=== PATIENT | female | born 1980 ===

== ENCOUNTER 2019-01-14 20:57 | Emergency (ER) | payer SELFPAY ==
[2019-01-14 21:42] LABS: Absolute Lymphocytes (CBC) 2.8 K/uL (0.7-4.9); Basophils % 0.6 % (0-1.3); Hematocrit 39.3 % (36.0-45.0); Lymphocytes % 30.4 % (15.3-44.8); MPV 8.4 fL (7.6-11.3); RBC Red Blood Cell Count 4.44 M/uL (3.86-4.86)
[2019-01-14 22:08] LABS: Urine Blood NEGATIVE (NEG); Urine Glucose NEGATIVE (NEG); Urine Protein NEGATIVE (NEG); Urine pH 5.5 (5.0-7.0)
[2019-01-14] MEDS ORDERED: NA CHLORIDE 0.9% 1,000 ML ONE (23:27)
[2019-01-15] MEDS ORDERED: PANTOPRAZOLE 40 MG INJ ONE (01:20)
[2019-01-15 01:35] LABS: ALT/SGPT 20 U/L (12-78); AST/SGOT 13 U/L (15-37); Albumin 3.3 g/dL (3.4-5.0); Alkaline Phosphatase 60 U/L (45-117); BUN Blood Urea Nitrogen 12 mg/dL (7-18); Bicarbonate 30 mmol/L (21-32); Bilirubin Direct 0.1 mg/dL (0-0.2); Bilirubin Total 0.4 mg/dL (0.2-1.0); Glucose Level 98 mg/dL (74-106); Lipase 84 U/L (73-393); Potassium 4.1 mmol/L (3.5-5.1); Protein, Total 6.7 g/dL (6.4-8.2); Sodium Level 141 mmol/L (136-145)
--- NOTE | 2019-01-15 01:43 | ER ---
Nurse's Notes [facility] Name: Lani Johnson Age: 38 yrs Sex: Female : 1980 Arrival Date: 01/14/2019 Time: 20:59 Bed 18 Private MD: Diagnosis: Upper abdominal pain, unspecified Presentation: 01/14 21:01 Presenting complaint: Significant other states: abd pain, nausea, dizziness, started iw yesterday morning. Transition of care: patient was not received from another setting of care. Onset of symptoms was January 13, 2019. Risk Assessment: Do you want to hurt yourself or someone else? Patient reports no desire to harm self or others. Initial Sepsis Screen: Does the patient meet any 2 criteria? No. Patient's initial sepsis screen is negative. Does the patient have a suspected source of infection? No. Patient's initial sepsis screen is negative. Care prior to arrival: None. 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 - Social history:: Smoking status: Patient/guardian denies using tobacco. - Ebola Screening: : Patient negative for fever greater than or equal to 101.5 degrees Fahrenheit, and additional compatible Ebola Virus Disease symptoms Patient denies exposure to infectious person Patient denies travel to an Ebola-affected area in the 21 days before illness onset No symptoms or risks identified at this time. Screenin:30 Abuse screen: Denies threats or abuse. Denies injuries from another. Nutritional wh screening: No deficits noted. Tuberculosis screening: No symptoms or risk factors identified. Fall Risk None identified. Assessment: 21:20 General: Appears in no apparent distress. Behavior is calm, cooperative, appropriate wh for age. Pain: Complains of pain in abdomen Pain does not radiate. Pain currently is 5 out of 10 on a pain scale. Pain began 1 day ago. Neuro: Level of Consciousness is awake, alert, obeys commands, Oriented to person, place, time, situation, Appropriate for age. Cardiovascular: Heart tones S1 S2. Respiratory: Airway is patent Respiratory effort is even, unlabored, Respiratory pattern is regular, symmetrical, Breath sounds are clear bilaterally. GI: Abdomen is flat, non-distended, Bowel sounds present X 4 quads. Abd is soft and non tender X 4 quads. : No signs and/or symptoms were reported regarding the genitourinary system. EENT: No signs and/or symptoms were reported regarding the EENT system. Derm: Skin is intact, is healthy with good turgor, Skin is pink, warm \T\ dry. normal. Musculoskeletal: Circulation, motion, and sensation intact. 21:52 Reassessment: Patient appears in no apparent distress at this time. No changes from previously documented assessment. Patient and/or family updated on plan of care and expected duration. Pain level reassessed. Patient is alert, oriented x 3, equal unlabored respirations, skin warm/dry/pink. 23:28 Reassessment: Patient appears in no apparent distress at this time. No changes from previously documented assessment. Patient and/or family updated on plan of care and expected duration. Pain level reassessed. Patient is alert, oriented x 3, equal unlabored respirations, skin warm/dry/pink. 01/15 00:39 Reassessment: Patient appears in no apparent distress at this time. No changes from previously documented assessment. Patient and/or family updated on plan of care and expected duration. Pain level reassessed. Patient is alert, oriented x 3, equal unlabored respirations, skin warm/dry/pink. Patient states feeling better. Patient states symptoms have improved. 01:54 Reassessment: Patient appears in no apparent distress at this time. No changes from previously documented assessment. Patient and/or family updated on plan of care and expected duration. Pain level reassessed. Patient is alert, oriented x 3, equal unlabored respirations, skin warm/dry/pink. Patient states feeling better. Patient states symptoms have improved. Vital Signs: 01/14 21:03 BP 120 / 70; Pulse 72; Resp 16; Temp 97.8; Pulse Ox 99% on R/A; Weight 68 kg; Height 5 iw ft. 4 in. (165 cm); Pain 8/10; 21:45 BP 116 / 76; Pulse 66; Resp 16; Pulse Ox 99% on R/A; 23:15 BP 112 / 62; Pulse 60; Resp 18; Pulse Ox 99% on R/A; 01/15 00:30 BP 104 / 88; Pulse 62; Resp 16; Pulse Ox 100% on R/A; 01:45 BP 103 / 68; Pulse 68; Resp 18; Pulse Ox 100% on R/A; 01/14 21:03 Body Mass Index 24.98 (68.00 kg, 165 cm) ED Course: 01/14 20:59 Patient arrived in ED. ag3 21:02 Triage completed. 21:03 Arm band placed on. 21:14 Gail Ledezma is Primary Nurse. 21:30 Patient has correct armband on for positive identification. Placed in gown. Bed in low wh position. Call light in reach. Side rails up X 1. Pulse ox on. NIBP on. 21:30 Inserted saline lock: 20 gauge in right antecubital area, using aseptic technique. Blood collected. 21:32 Sunitha Couch FNP-C is PHCP. snw 21:32 Lux Teresa MD is Attending Physician. [facility] 01/15 01:54 No provider procedures requiring assistance completed. IV discontinued, intact, bleeding controlled, No redness/swelling at site. Administered Medications: 01/14 23:29 Drug: NS 0.9% 1000 ml Route: IV; Rate: 1 bolus; Site: right antecubital; 01/15 00:41 Follow up: Response: No adverse reaction; IV Status: Completed infusion 01:21 Drug: ProTONIX 40 mg Route: IVP; Site: right antecubital; 01:36 Follow up: Response: No adverse reaction Outcome: 01:42 Discharge ordered by . snw 01:55 Discharged to home ambulatory, with friend. 01:55 Condition: stable 01:55 Discharge instructions given to patient, friend, Instructed on discharge instructions, follow up and referral plans. medication usage, POC Abd pain and GERD Demonstrated understanding of instructions, follow-up care, medications, POC Prescriptions given X 2. 01:56 Patient left the ED. Signatures: Sunitha Couch FNP-C DUCT LAYER SUPERVISOR-Csnw Karen Quick RN RN [place], Olya nOeil ag3
--- NOTE | 2019-01-15 01:44 | EDPHYS ---
Physician Documentation [facility] Name: Lani Johnson Age: 38 yrs Sex: Female : 1980 Arrival Date: 01/14/2019 Time: 20:59 Bed 18 Private MD: GARCIA Physician Lux Teresa HPI: 01/14 23:16 This 38 yrs old Female presents to ER via Ambulatory with complaints of Abdominal Pain. snw 23:16 The patient presents with abdominal pain in the epigastric area. Onset: The snw symptoms/episode began/occurred 3 month(s) ago, and became persistent. The symptoms do not radiate. The symptoms are described as crampy, waxing/waning. Modifying factors: The symptoms are alleviated by nothing, the symptoms are aggravated by food. The patient has experienced similar episodes in the past. The patient has not recently seen a physician. 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 - Social history:: Smoking status: Patient/guardian denies using tobacco. - Ebola Screening: : Patient negative for fever greater than or equal to 101.5 degrees Fahrenheit, and additional compatible Ebola Virus Disease symptoms Patient denies exposure to infectious person Patient denies travel to an Ebola-affected area in the 21 days before illness onset No symptoms or risks identified at this time. ROS: 23:15 Constitutional: Negative for fever, chills, and weight loss, Eyes: Negative for injury, snw pain, redness, and discharge, ENT: Negative for injury, pain, and discharge, Neck: Negative for injury, pain, and swelling, Cardiovascular: Negative for chest pain, palpitations, and edema, Respiratory: Negative for shortness of breath, cough, wheezing, and pleuritic chest pain, Back: Negative for injury and pain, : Negative for injury, bleeding, discharge, and swelling, MS/Extremity: Negative for injury and deformity, Skin: Negative for injury, rash, and discoloration, Neuro: Negative for headache, weakness, numbness, tingling, and seizure, Psych: Negative for depression, anxiety, suicide ideation, homicidal ideation, and hallucinations. 23:15 Abdomen/GI: Positive for abdominal pain, nausea. Exam: 23:15 Constitutional: This is a well developed, well nourished patient who is awake, alert, snw and in no acute distress. Head/Face: Normocephalic, atraumatic. Eyes: Pupils equal round and reactive to light, extra-ocular motions intact. Lids and lashes normal. Conjunctiva and sclera are non-icteric and not injected. Cornea within normal limits. Periorbital areas with no swelling, redness, or edema. ENT: Nares patent. No nasal discharge, no septal abnormalities noted. Tympanic membranes are normal and external auditory canals are clear. Oropharynx with no redness, swelling, or masses, exudates, or evidence of obstruction, uvula midline. Mucous membranes moist. Neck: Trachea midline, no thyromegaly or masses palpated, and no cervical lymphadenopathy. Supple, full range of motion without nuchal rigidity, or vertebral point tenderness. No Meningismus. Chest/axilla: Normal chest wall appearance and motion. Nontender with no deformity. No lesions are appreciated. Cardiovascular: Regular rate and rhythm with a normal S1 and S2. No gallops, murmurs, or rubs. Normal PMI, no JVD. No pulse deficits. Respiratory: Lungs have equal breath sounds bilaterally, clear to auscultation and percussion. No rales, rhonchi or wheezes noted. No increased work of breathing, no retractions or nasal flaring. Back: No spinal tenderness. No costovertebral tenderness. Full range of motion. Skin: Warm, dry with normal turgor. Normal color with no rashes, no lesions, and no evidence of cellulitis. MS/ Extremity: Pulses equal, no cyanosis. Neurovascular intact. Full, normal range of motion. Neuro: Awake and alert, GCS 15, oriented to person, place, time, and situation. Cranial nerves II-XII grossly intact. Motor strength 5/5 in all extremities. Sensory grossly intact. Cerebellar exam normal. Normal gait. 23:15 Abdomen/GI: Inspection: abdomen appears normal, Bowel sounds: normal, in all quadrants, Palpation: moderate abdominal tenderness, in the left upper quadrant. Vital Signs: 21:03 BP 120 / 70; Pulse 72; Resp 16; Temp 97.8; Pulse Ox 99% on R/A; Weight 68 kg; Height 5 iw ft. 4 in. (165 cm); Pain 8/10; 21:45 BP 116 / 76; Pulse 66; Resp 16; Pulse Ox 99% on R/A; wh 23:15 BP 112 / 62; Pulse 60; Resp 18; Pulse Ox 99% on R/A; wh 01/15 00:30 BP 104 / 88; Pulse 62; Resp 16; Pulse Ox 100% on R/A; wh 01:45 BP 103 / 68; Pulse 68; Resp 18; Pulse Ox 100% on R/A; wh 01/14 21:03 Body Mass Index 24.98 (68.00 kg, 165 cm) iw MDM: 01/14 21:57 Patient medically screened. snw 01/15 01:40 Data reviewed: vital signs, nurses notes. Data interpreted: Pulse oximetry: on room air snw is 100 %. Interpretation: normal. Counseling: I had a detailed discussion with the patient and/or guardian regarding: the historical points, exam findings, and any diagnostic results supporting the discharge/admit diagnosis, lab results, radiology results, the need for outpatient follow up, for definitive care. Response to treatment: the patient's symptoms have mildly improved after treatment. Special discussion: Based on the patient's Hx, exam, and Dx evaluation, there is no indication for emergent surgery or inpatient Tx. It is understood by the patient/guardian that if the Sx's persist or worsen they need to return immediately for re-evaluation. Based on the history and exam findings, there is no indication for further emergent testing or inpatient evaluation. I discussed with the patient/guardian the need to see the as400 developer for further evaluation of the symptoms. I discussed with the patient/guardian the need to see the primary care provider for further evaluation of the symptoms. 01/14 21:16 Order name: Basic Metabolic Panel; Complete Time: 01:40 wh 01/14 21:16 Order name: CBC with Diff; Complete Time: 21:49 wh 01/14 21:16 Order name: Creatinine for Radiology; Complete Time: 01:34 wh 01/14 21:16 Order name: Hepatic Function; Complete Time: 01:40 wh 01/14 21:16 Order name: Lipase; Complete Time: :40 01/14 21:46 Order name: Urine Dipstick--Ancillary (enter results); Complete Time: 22:15 cm6 01/14 21:16 Order name: IV Saline Lock; Complete Time: 21:36 01/14 21:16 Order name: Labs collected and sent; Complete Time: 21:36 01/14 21:19 Order name: Urine Dipstick-Ancillary (obtain specimen); Complete Time: 21:36 01/14 21:19 Order name: Urine Test (obtain specimen); Complete Time: 21:36 Administered Medications: 01/14 23:29 Drug: NS 0.9% 1000 ml Route: IV; Rate: 1 bolus; Site: right antecubital; 01/15 00:41 Follow up: Response: No adverse reaction; IV Status: Completed infusion 01:21 Drug: ProTONIX 40 mg Route: IVP; Site: right antecubital; 01:36 Follow up: Response: No adverse reaction Disposition: 04:19 Co-signature as Attending Physician, Lux Teresa MD I agree with the assessment and tw4 plan of care. Disposition: 01/15/19 01:42 Discharged to Home. Impression: Upper abdominal pain, unspecified. - Condition is Stable. - Discharge Instructions: Abdominal Pain, Adult, Food Choices for Gastroesophageal Reflux Disease, Adult, Fat and Cholesterol Restricted Diet, Rehydration, Adult. - Prescriptions for Bentyl 20 mg Oral Tablet - take 1 tablet by ORAL route every 6 hours As needed; 20 tablet. Nexium 20 mg Oral Capsule - take 1 capsule by ORAL route once daily; 20 capsule. - Medication Reconciliation Form, Thank You Letter, Antibiotic Education, Prescription Opioid Use form. - Follow up: Emergency Department; When: As needed; Reason: Worsening of condition. Follow up: Private Physician; When: 2 - 3 days; Reason: Recheck today's complaints, Continuance of care, Re-evaluation by your physician. Signatures: Dispatcher [employer] Sunitha Schmid, TIERRAC PERIPATOLOGIST-Csnw Karen Quick RN RN iw [place], Winsy Lux Teresa MD MD tw4 Corrections: (The following items were deleted from the chart) 01:56 01:42 01/15/2019 01:42 Discharged to Home. Impression: Upper abdominal pain, wh unspecified. Condition is Stable. Forms are Medication Reconciliation Form, Thank You Letter, Antibiotic Education, Prescription Opioid Use. Follow up: Emergency Department; When: As needed; Reason: Worsening of condition. Follow up: Private Physician; When: 2 - 3 days; Reason: Recheck today's complaints, Continuance of care, Re-evaluation by your physician. snw
[2019-01-15 03:41] VITALS: TEMP 97.8
[2019-01-15 03:45] VITALS: O2SAT 100
[2019-01-15 03:47] VITALS: BP 103/68
== END 2019-01-15 01:56 | disposition home or self-care (01) ==
LOC: ER 20:57
DX: R10.812 Left upper quadrant abdominal tenderness (principal)
CPT/HCPCS: 36415; 80048; 80076; 81003; 83690; 85025; 96361; 96374; 99284; C9113; J7030